=== PATIENT | female | born 1985 | race Caucasian/White ===

== ENCOUNTER 2018-06-25 06:00 | Inpatient (IN) ==
[2018-06-25] MEDS ORDERED: MEPERIDINE 50 MG/1 ML VIAL IV PRN (06:11)
[2018-06-25] MEDS ORDERED: LACTATED RINGERS 250 ML IV ONE (06:11)
[2018-06-25] MEDS ORDERED: ONDANSETRON 4 MG/2 ML VIAL IV PRN ×3 (06:11→22:32)
[2018-06-25] MEDS ORDERED: BUTORPHANOL 2 MG/ML VIAL IV PRN (06:11)
[2018-06-25 06:49] LABS: Basophils # 0.1 10*3/uL (0.0-0.2); Basophils % 0.4 % (0.0-0.8); Eosinophils # 0.1 10*3/uL (0.0-0.87); Eosinophils % 0.4 % (0.00-10.9); Hematocrit 35.6 VOL% (35.7-47.0); Hemoglobin 11.3 GM/DL (12.0-16.0); Immature Granulocytes % 1.9 %; Immature Granulocytes Absolute 0.24 #; Lymphocytes # 1.9 10*3/uL (1.4-4.0); Lymphocytes % 15.3 % (21.3-54.2); Mean Corpuscular HGB Conc 31.7 GM/DL (32-36); Mean Corpuscular Volume 90.6 FL (87-102); Mean Platelet Volume 13.3 FL (9.6-12.0); Monocytes % 6.5 % (1.7-12.7); Neutrophils % 75.5 % (38.7-73.9); Platelet Count 131 T/CUMM (130-400); Red Blood Count 3.93 MC/CUMM (3.8-5.5); Red Cell Distribution Width 14.7 % (9.3-17.3); White Blood Count 12.7 T/CUMM (4-12)
[2018-06-25] MEDS: LACTATED RINGERS 1,000 ML IV SCH ×2 (06:59→19:51)
[2018-06-25] MEDS ORDERED: OXYTOCIN/LR 20 UNIT/1,000 ML BAG IV SCH (07:00)
[2018-06-25 07:04] LABS: Alanine Aminotransferase 19 U/L (13-56); Albumin 2.7 G/DL (3.4-5.0); Alkaline Phosphatase 247 U/L (45-117); Aspartate Amino Transferase 14 U/L (0-37); Bilirubin,Total < 0.39 MG/DL (0.2-1.0); Blood Urea Nitrogen 10 MG/DL (7-18); Calcium 8.4 MG/DL (8.5-10.1); Glucose 88 MG/DL (74-106); Total Protein 6.8 G/DL (6.4-8.3)
[2018-06-25] MEDS ORDERED: NALOXONE 0.4 MG/ML VIAL IV PRN (09:23)
[2018-06-25] MEDS ORDERED: diphenhydrAMINE 50 MG/1 ML VIAL IV PRN ×3 (09:23→22:32)
[2018-06-25] MEDS ORDERED: PROMETHAZINE 25 MG/1 ML VIAL IM ONE (09:23)
[2018-06-25] MEDS ORDERED: CITRIC ACID/SODIUM CITRATE 30 ML UDCUP PO ONE (09:23)
[2018-06-25] MEDS ORDERED: hydrOXYzine HCL 25 MG/1 ML VIAL IM PRN ×2 (09:23→22:32)
[2018-06-25] MEDS ORDERED: FAMOTIDINE 20 MG/2 ML VIAL IV ONE (09:23)
[2018-06-25] MEDS ORDERED: LACTATED RINGERS 1,000 ML IV ONE (09:23)
[2018-06-25] MEDS ORDERED: ePHEDrine 50 MG/ML AMP IV PRN (09:23)
[2018-06-25] MEDS ORDERED: LACTATED RINGERS 1,000 ML IV SCH ×3 (09:30→23:00)
[2018-06-25] MEDS: fentaNYL 2 MCG/ROPIV 0.2% EPID 100 ML EPIDURAL SCH ×2 (11:17→19:20)
[2018-06-25 12:48] LABS: Apearance,Urine CLEAR (Clear); Bacteria,Urine Occasional /HPF (Few); Bilirubin,Urine Negative (Negative); Blood, Urine Negative (Negative); Glucose,Urine (UA) Negative (Negative); Ketones,Urine Negative (Negative); Mucus,Urine Occasional /LPF (Occasional); Nitrite,Urine Negative (Negative); Protein,Urine Negative; RBC,Urine <1 /HPF (0-4); Urine Color Straw (Yellow); Urine Specific Gravity 1.005 (1.001-1.035); Urine Urobilinogen < 2.0 EU/DL (0.2-1.0); WBC,Urine <1 /HPF (0-6)
[2018-06-25] MEDS ORDERED: miSOPROStol 200 MCG TABLET ONE (16:32)
[2018-06-25] MEDS ORDERED: LIDOCAINE 1% 50 ML VIAL ONE (16:32)
[2018-06-25] MEDS ORDERED: METHYLERGONOVINE 0.2 MG/1 ML AMP ONE (16:33)
[2018-06-25] MEDS ORDERED: CARBOPROST TROMETHAMINE 250 MCG/ML AMP IM ONE (16:33)
[2018-06-25] MEDS ORDERED: ceFAZolin 2,000 MG in PREMIX 1 EACH IV ONE (19:43)
[2018-06-25] MEDS ORDERED: MORPHINE 10 MG/10 ML VIAL ONE (20:17)
[2018-06-25] MEDS ORDERED: ROPIVACAINE 0.5% 30 ML VIAL ONE (20:43)
[2018-06-25] MEDS ORDERED: DEXAMETHASONE 4 MG/1 ML VIAL ONE (20:44)
[2018-06-25] MEDS ORDERED: ACETAMINOPHEN 325 MG TABLET PO PRN (21:05)
[2018-06-25] MEDS ORDERED: OXYTOCIN/LR 20 UNIT/1,000 ML BAG IV ONE (21:05)
[2018-06-25] MEDS ORDERED: RHO(D) IMMUNE GLOBULIN 300 MCG SYRINGE IM ONE (21:05)
[2018-06-25] MEDS ORDERED: oxyCODONE/ACETAMINOPHEN 5-325 MG TABLET PO PRN (21:07)
[2018-06-25] MEDS ORDERED: HYDROmorphone 2 MG/1 ML VIAL IV PRN (22:32)
[2018-06-25] MEDS ORDERED: KETOROLAC 30 MG/1 ML VIAL IV PRN (22:33)
[2018-06-25] MEDS ORDERED: SODIUM CHLORIDE 0.9% 1,000 ML IV SCH (23:00)
[2018-06-26] MEDS: ceFAZolin 1,000 MG in SYRINGE 1 EACH IV SCH ×2 (04:27→11:23)
[2018-06-26 05:33] LABS: Basophils % 0.1 % (0.0-0.8); Hematocrit 33.7 VOL% (35.7-47.0); Hemoglobin 10.9 GM/DL (12.0-16.0); Immature Granulocytes % 1.2 %; Immature Granulocytes Absolute 0.33 #; Lymphocytes # 0.7 10*3/uL (1.4-4.0); Lymphocytes % 2.5 % (21.3-54.2); Mean Corpuscular HGB Conc 32.3 GM/DL (32-36); Mean Corpuscular Volume 89.4 FL (87-102); Monocytes % 3.6 % (1.7-12.7); Neutrophils % 92.6 % (38.7-73.9); Platelet Count 119 T/CUMM (130-400); Red Blood Count 3.77 MC/CUMM (3.8-5.5); Red Cell Distribution Width 14.9 % (9.3-17.3)
[2018-06-26 06:08] LABS: Anisocytosis 1+; Band Neutrophils 2 % (0-10); Lymphocytes 4 % (20-55); Platelet Estimate Decreased; Segmented Neutrophils 92 % (50-85); Total Cells Counted 100
[2018-06-26 07:22] LABS: Apearance,Urine Slightly Hazy (Clear); Bilirubin,Urine Negative (Negative); Blood, Urine Large mg/dL (Negative); Glucose,Urine (UA) Negative (Negative); Ketones,Urine 20 mg/dL (Negative); Mucus,Urine Occasional /LPF (Occasional); Nitrite,Urine Negative (Negative); Protein,Urine 100 MG/DL; RBC,Urine 2972 /HPF (0-4); Urine Color Amber (Yellow); Urine Specific Gravity 1.015 (1.001-1.035); WBC,Urine 15 /HPF (0-6)
[2018-06-26] MEDS: MAGNESIUM HYDROXIDE SUSP 30 ML UDCUP PO PRN ×2 (07:45→20:55)
[2018-06-26] MEDS: SIMETHICONE CHEW 80 MG TABLET PO PRN (07:47)
[2018-06-26] MEDS: DOCUSATE SODIUM 100 MG CAPSULE PO SCH ×2 (08:00→20:55)
[2018-06-26] MEDS: MULTIVITAMIN (PRENATAL) TABLET PO SCH (08:00)
[2018-06-26] MEDS: oxyCODONE/ACETAMINOPHEN 5-325 MG TABLET PO PRN (09:02)
[2018-06-26] MEDS ORDERED: SODIUM CHLORIDE 0.9% 50 ML IV ONE (11:13)
[2018-06-26 12:49] LABS: Basophils % 0.2 % (0.0-0.8); Hematocrit 31.9 VOL% (35.7-47.0); Hemoglobin 9.9 GM/DL (12.0-16.0); Immature Granulocytes % 1.5 %; Lymphocytes % 4.6 % (21.3-54.2); Mean Corpuscular Volume 92.2 FL (87-102); Mean Platelet Volume 13.5 FL (9.6-12.0); Monocytes % 7.4 % (1.7-12.7); Neutrophils % 86.3 % (38.7-73.9); Platelet Count 144 T/CUMM (130-400); Red Blood Count 3.46 MC/CUMM (3.8-5.5); Red Cell Distribution Width 15.1 % (9.3-17.3); White Blood Count 24.9 T/CUMM (4-12)
[2018-06-26 12:50] LABS: Basophils # 0.1 10*3/uL (0.0-0.2); Immature Granulocytes Absolute 0.38 #; Lymphocytes # 1.2 10*3/uL (1.4-4.0)
[2018-06-26 12:53] LABS: Band Neutrophils 4 % (0-10); Hypochromasia 1+; Lymphocytes 2 % (20-55); Platelet Estimate Adequate; Segmented Neutrophils 90 % (50-85); Total Cells Counted 100
[2018-06-26] MEDS: IBUPROFEN 800 MG TABLET PO PRN (15:24)
[2018-06-27] MEDS: MULTIVITAMIN (PRENATAL) TABLET PO SCH (09:09)
[2018-06-27] MEDS: SIMETHICONE CHEW 80 MG TABLET PO PRN ×3 (09:09→22:25)
[2018-06-27] MEDS: MAGNESIUM HYDROXIDE SUSP 30 ML UDCUP PO PRN ×2 (09:09→20:22)
[2018-06-27] MEDS: DOCUSATE SODIUM 100 MG CAPSULE PO SCH ×2 (09:10→20:23)
[2018-06-27] MEDS ORDERED: HYDROCORTISONE 2.5% RECTAL CREAM 30 GM TUBE TOP PRN (10:12)
[2018-06-27] MEDS ORDERED: WITCH HAZEL PADS 100/JAR TOP PRN (10:13)
[2018-06-27] MEDS: IBUPROFEN 800 MG TABLET PO PRN ×2 (10:23→22:25)
[2018-06-27] MEDS: oxyCODONE/ACETAMINOPHEN 5-325 MG TABLET PO PRN ×2 (13:16→20:24)
[2018-06-28] MEDS: oxyCODONE/ACETAMINOPHEN 5-325 MG TABLET PO PRN (06:53)
[2018-06-28 07:31] VITALS: BP 118/73
[2018-06-28] MEDS ORDERED: BISACODYL 10 MG SUPP RECTAL PRN (08:42)
[2018-06-28] MEDS: MAGNESIUM HYDROXIDE SUSP 30 ML UDCUP PO PRN (10:06)
[2018-06-28] MEDS: DOCUSATE SODIUM 100 MG CAPSULE PO SCH (10:07)
[2018-06-28] MEDS: SIMETHICONE CHEW 80 MG TABLET PO PRN (10:07)
[2018-06-28] MEDS: MULTIVITAMIN (PRENATAL) TABLET PO SCH (10:07)
[2018-06-28] MEDS: IBUPROFEN 800 MG TABLET PO PRN (13:26)
== END 2018-06-28 13:55 | disposition home or self-care (01) | DRG 785 ==
LOC: N.LDOUT 06:00 → N.LD 06:03 → N.OB 06-26 01:01
PROVIDERS: ADMIT Obstetrics & Gynecology; ATTEND Obstetrics & Gynecology